=== PATIENT | male | born 1985 ===

== ENCOUNTER 2023-10-18 14:09 | Emergency (ER) | payer OTHER, SELFPAY ==
--- NOTE | ~2023-10-18 | XR_ITS ---
EXAMINATION: XR finger 4th LT min 2V INDICATION: Left fourth finger pain, initial encounter TECHNIQUE: Three views of the left fourth finger are obtained. COMPARISON: None available FINDINGS: There is an acute, traumatic, closed, oblique fracture in the medial base of the fourth dis meli phalanx which extends to the distal interphalangeal joint. There is overlying soft tissue swellin g and possible soft tissue defect. The fracture appears to involve less than 50% of the articular edis face. No additional fracture is identified. The joint spaces are maintained. IMPRESSION: 1. Oblique intra-articular fracture in the medial base of the fourth distal phalanx, possibly open. Reviewed, dictated and finalized at location L. P[employer] HE[employer] NURSING DIRECTOR IMPRESSION: 1. Oblique intra-articular fracture in the medial base of the fourth distal pha lanx, possibly open.
[2023-10-18 15:02] VITALS: BP 143/91; PULSE 78; RESP 16; TEMP 36.7; O2SAT 100
--- NOTE | 2023-10-18 16:20 | ED.GENADULT ---
HPI - General Adult General Chief complaint: Wound/Laceration <EDWAR Mccrary Last Filed: 10/18/23 19:39> Stated complaint: finger lac <EDWAR Mccrary Last Filed: 10/18/23 19:39> Time Seen by Provider: 10/18/23 16:17 <Cleveland Clemente PA-C - Last Filed: 10/18/23 19:39> Source: patient <EDWAR Mccrary Last Filed: 10/18/23 19:39> Mode of arrival: ambulatory <EDWAR Mccrary Last Filed: 10/18/23 19:39> Limitations: no limitations <EDWAR Mccrary Last Filed: 10/18/23 19:39> History of Present Illness HPI narrative: this is a 38-year-old male who presents to the ED with chief complaint of left 4th digit crush injury with a sledgehammer that occurred prior to arrival. 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 Reports that someone else was swinging a sledgehammer and he hit pt hand in motion while moving a block. It was not a direct strike. Patient reports lacerations medially and palmar. denies numbness or weakness. Tetanus not today. <Cleveland Clemente PA-C - Last Filed: 10/18/23 19:39> Related Data Allergies/adverse reactions: Allergies Allergy/AdvReac Type Severity Reaction Status Date / Time No Known Allergies Allergy Verified 10/18/23 16:26 <Cleveland Clemente PA-C - Last Filed: 10/18/23 19:39> Review of Systems Review of Systems: All systems as dictated in HPI <EDWAR Mccrary Last Filed: 10/18/23 19:39> Exam Narrative: GENERAL: Well-appearing, well-nourished, and in no acute distress. HEAD: Normocephalic, atraumatic. EYES: PERRLA and EOMI. ENT: Nares clear, no rhinorrhea or epistaxis. Mucous membranes moist. Oropharynx without tonsillar hypertrophy exudate or other lesions. NECK: Supple. No adenopathy or masses. CHEST: No respiratory distress. Clear to auscultation. No wheezes rales or rhonchi HEART: Regular rate and rhythm. No murmur heard. Normal peripheral pulses. ABDOMEN: Soft, nontender, nondistended, normal active bowel sounds. MSK: Normal range of motion. No edema. SKIN: Warm, dry, no rash. NEURO: Alert and oriented x3. No focal deficits. PSYCH: Normal mood and affect. <Cleveland Clemente PA-C - Last Filed: 10/18/23 19:39> Course ASSISTANT MANAGER BILINGUAL/PA Physician Supervision For this patient encounter, I reviewed the ASSISTANT MANAGER BILINGUAL or PA documentation, treatment plan, and medical decision making and I had [id number] time with this patient. I performed all aspects of the MDM as documented. <Christiano Briggs DO - Last Filed: 10/18/23 21:57> Vital Signs Vital signs: Vital Signs Temperature 98.0 F 10/18/23 15:02 Pulse Rate 78 10/18/23 15:02 Respiratory Rate 16 10/18/23 15:02 Blood Pressure 143/91 H 10/18/23 15:02 Pulse Oximetry 100 10/18/23 15:02 Oxygen Delivery Room Air 10/18/23 15:02 Temperature 98.0 F 10/18/23 15:02 Pulse Rate 78 10/18/23 15:02 Respiratory Rate 16 10/18/23 15:02 Blood Pressure 143/91 H 10/18/23 15:02 Pulse Oximetry 100 10/18/23 15:02 Oxygen Delivery Room Air 10/18/23 15:02 <Cleveland Clemente PA-C - Last Filed: 10/18/23 19:39> Vital Signs Temperature 98.0 F 10/18/23 15:02 Pulse Rate 78 10/18/23 15:02 Respiratory Rate 16 10/18/23 15:02 Blood Pressure 143/91 H 10/18/23 15:02 Pulse Oximetry 100 10/18/23 15:02 Oxygen Delivery Room Air 10/18/23 15:02 Temperature 98.0 F 10/18/23 15:02 Pulse Rate 78 10/18/23 15:02 Respiratory Rate 16 10/18/23 15:02 Blood Pressure 143/91 H 10/18/23 15:02 Pulse Oximetry 100 10/18/23 15:02 Oxygen Delivery Room Air 10/18/23 15:02 <Christiano Briggs DO - Last Filed: 10/18/23 21:57> Procedures Laceration Laceration 1: Date: 10/18/23 <EDWAR Mccrary Last Filed: 10/18/23 19:39> Time: 19:36 <EDWAR Mccrary Last Filed: 10/18/23 19:39> Site: hand <EDWAR Mccrary Last File
[2023-10-18] MEDS: ceFAZolin 1 GM/NS 50 ML 1 GM/50 ML BAG IVPB (17:30)
[2023-10-18] MEDS: TETANUS,DIPHTHERIA,AC PERTUSSIS ADULT (0.5 ML) BOOSTRIX IM (17:30)
[2023-10-18] MEDS: LIDOCAINE HCL 1% LOCAL INJ 10 ML VIAL INFILTRATE (17:32)
== END 2023-10-18 18:06 | disposition home or self-care (01) ==
PROVIDERS: Emergency Provider Physician Assistant
DX: S62.635B Displaced fracture of distal phalanx of left ring finger, initial encounter for open fracture (principal); Z23 Encounter for immunization; W27.8XXA Contact with other nonpowered hand tool, initial encounter
CPT/HCPCS: 12001; 29130; 73140; 90471; 90715; 96365; 99284; J0690

== ENCOUNTER 2023-11-22 12:49 | Outpatient (CLI) | payer OTHER, SELFPAY ==
--- NOTE | ~2023-11-22 | XR_ITS ---
EXAMINATION: XR finger 4th LT min 2V DATE: 11/22/2023 13:10 INDICATION: Displaced fracture of the left fourth distal phalanx TECHNIQUE: Dorsal palmar, lateral and oblique views of the left fourth digit were obtained COMPARISON: None FINDINGS: There is decreased lucency at the proximal margin of a nondisplaced intra-articular fracture at the u lnar aspect of the base of the left fourth distal phalanx which could represent interval healing. No evident associated periosteal reaction No other fractures identified. Joint spaces are normal. Soft t issue swelling about the distal fourth digit. IMPRESSION: 1. Nondisplaced likely healing intra-articular fracture at the ulnar base of the left fourth proximal phalanx. Reviewed, dictated and finalized at location L. IMPRESSION: 1. Nondisplaced likely healing intra-articular fracture at the ulnar base of th e left fourth proximal phalanx.
== END 2023-11-22 12:50 | disposition home or self-care (01) ==
PROVIDERS: Visit Provider Physician Assistant Surgical
DX: S62.635A Displaced fracture of distal phalanx of left ring finger, initial encounter for closed fracture (principal); X58.XXXA Exposure to other specified factors, initial encounter
CPT/HCPCS: 73140

== ENCOUNTER 2023-12-11 12:42 | Outpatient (CLI) | payer OTHER, SELFPAY ==
--- NOTE | ~2023-12-11 | XR_ITS ---
XR hand LT min 3V DATE: 12/11/2023 13:03 INDICATION: Pain TECHNIQUE: 3 views COMPARISON: October 2023 left fourth digit FINDINGS: Mild osteoarthritis at the first carpometacarpal joint. Likely healing nondisplaced fracture of the ulnar base of the distal phalanx of the fourth digit. No other fracture or dislocation, periosteal reaction or bone destruction is detected. IMPRESSION: Healing nondisplaced fracture of ulnar base of distal phalanx of fourth digit Mild osteoarthritis at the first carpometacarpal joint Reviewed, dictated and finalized at location B. IMPRESSION: Healing nondisplaced fracture of ulnar base of distal phalanx of fo urth digit Mild osteoarthritis at the first carpometacarpal joint
== END 2023-12-11 12:43 | disposition home or self-care (01) ==
LOC: ANHIMG 12:44
PROVIDERS: Visit Provider Physician Assistant Surgical
DX: M19.042 Primary osteoarthritis, left hand (principal); S62.635D Displaced fracture of distal phalanx of left ring finger, subsequent encounter for fracture with routine healing; X58.XXXD Exposure to other specified factors, subsequent encounter
CPT/HCPCS: 73130